=== PATIENT | female | born 1945 | race Caucasian/White ===

== ENCOUNTER 2017-03-10 15:01 | Outpatient (CLI) | payer BC ==
--- NOTE | 2017-03-10 16:25 | MMO ---
BILATERAL DIGITAL SCREENING MAMMOGRAMS WITH CAD: 03/10/17 COMPARISON: Comparison is made with exams of 03/04/16 and 02/16/15. There are scattered fibroglandular densities with benign appearing calcifications. No suspicious mas ses or calcifications are identified. IMPRESSION: BI-RADS 2: Benign Finding(s) Routine annual screening mammography (for women over age 40). POS: ALYSHA
== END 2017-03-10 15:02 | disposition home or self-care (01) ==
LOC: SCSMAMMO 15:01
PROVIDERS: ATTEND Obstetrics & Gynecology
DX: Z12.31 Encounter for screening mammogram for malignant neoplasm of breast (principal)
CPT/HCPCS: 77067; G0202

== ENCOUNTER 2017-07-30 08:37 | Outpatient (CLI) | payer BC | END 2017-07-30 08:38 | disposition home or self-care (01) | LOC: BICRAD 08:37 | PROVIDERS: ATTEND Anesthesiology Pain Medicine | DX: M25.551 Pain in right hip (principal); M25.552 Pain in left hip; M16.11 Unilateral primary osteoarthritis, right hip ==

== ENCOUNTER 2017-08-25 07:38 | Outpatient (CLI) | payer BC, MEDICARE ==
[2017-08-25 09:20] LABS: #Basophils 0.1 thou/uL (0.0-0.2); #Eosinphils 0.2 thou/uL (0.0-0.7); #Lymphocytes 2.1 thou/uL (1.20-3.40); #Monocytes 0.9 thou/uL (0.11-0.59); #Neutrophils 3.9 thou/uL (1.40-6.50); %Basophils 1.5 % (0.0-1.0); %Eosinophils 3.4 % (0.0-10.0); %Lymphocytes 29.2 % (21.0-51.0); %Monocytes 12.6 % (0.0-10.0); %Neutrophils 53.3 % (42.0-75.0); Hemoglobin 14.1 g/dL (12.0-16.0); Mean Corpuscular HGB CONC 33.8 g/dL (32.0-36.0); Mean Corpuscular Hemoglobin 32.1 pg (27.0-31.0); Mean Platelet Volume 6.6 fL (7.4-10.4); Platelet Count 380 thou/uL (130-400); Red Blood Cell (RBC) Count 4.38 mill/uL (4.20-5.40); White Blood Cell (WBC) Count 7.2 thou/uL (4.8-10.8)
[2017-08-25 09:25] LABS: Bilirubin Negative (Negative); Blood, Urine Negative (Negative); Clarity CLOUDY (Clear); Glucose, Urine (Dipstick) Negative (Negative); Leukocyte Moderate (Negative); Nitrite Negative (Negative); Protein, Urine (Dipstick) Negative (Neg-Trace); Specific Gravity, Urine 1.018 (1.002-1.036); Urobilinogen 0.2 mg/dL (0.2-1.0)
[2017-08-25 09:26] LABS: PTT 28.4 SEC (22.9-36.1)
[2017-08-25 09:29] LABS: Bacteria/HPF None Seen HPF (None Seen); Hyaline Casts/LPF 0-3 HYALINE CAST LPF (0-3 Hyaline); Pathc Cast-AUWi Flag 0.29 (0-2.49); RBC/HPF 0-3 HPF (0-3)
[2017-08-25 09:41] LABS: Anion Gap 14 mmol/L (10-20); BUN (Urea Nitrogen) 11 mg/dL (9.8-20.1); Calc. Creatinine Clearance 0 mL/min (70-130); Calcium 10.1 mg/dL (7.8-10.44); Carbon Dioxide 29 mmol/L (23-31); Chloride 101 mmol/L (98-107); Estimated GFR-MDRD 78; Glucose 98 mg/dL (80-115); Potassium 3.9 mmol/L (3.5-5.1); Sodium 140 mmol/L (136-145)
--- NOTE | 2017-08-26 08:03 | EKG ---
Test Reason : Blood Pressure : / mmHG Vent. Rate : 071 BPM Atrial Rate : 071 BPM P-R Int : 142 ms QRS Dur : 078 ms QT Int : 386 ms P-R-T Axes : 075 060 034 degrees QTc Int : 419 ms Normal sinus rhythm Normal ECG When compared with ECG of 07-FEB-2014 15:14, Criteria for Septal infarct are no longer Present Confirmed by LAURA GRIFFITHS ([id number]) on 08/26/2017 8:02:55 AM Referred By: SHERRY Confirmed By:LAURA GRIFFITHS
== END 2017-08-25 07:39 | disposition home or self-care (01) ==
LOC: LABBT 07:38
PROVIDERS: ATTEND Orthopaedic Surgery
DX: Z01.818 Encounter for other preprocedural examination (principal); M16.11 Unilateral primary osteoarthritis, right hip
CPT/HCPCS: 80048; 81001; 85025; 85610; 85730; 87081; 87086; 93005; 93010

== ENCOUNTER 2017-08-25 08:00 | Inpatient (IN) | payer BC, MEDICARE ==
--- NOTE | 2017-09-03 09:07 | HP ---
DATE OF ADMISSION: 09/07/2017 HISTORY OF PRESENT ILLNESS: The patient is a 71-year-old female with a 2-year history of progressive right hip pain without injury. She has pain with walking and prolonged sitting. Her symptoms have progressed to the point these interfere with day-to-day activities like walking, getting dressed, and sleeping. Mental relief with lifestyle adjustments and use of Meloxicam. PAST MEDICAL HISTORY: The patient is, otherwise, in good health. She has a history of hypertension, thyroid disease, and high cholesterol. CURRENT MEDICATIONS: Include simvastatin, hydrochlorothiazide, levothyroxine, gabapentin, and aspiri n 81 mg. ALLERGIES: She is allergic to AUGMENTIN, which causes an upset stomach. FAMILY HISTORY, SOCIAL HISTORY, AND REVIEW OF SYSTEMS: Otherwise unremarkable. PHYSICAL EXAMINATION: GENERAL: Reveals a healthy female. HEENT: Unremarkable. NECK: Supple. CHEST: Clear. HEART: Regular rate and rhythm. ABDOMEN: Soft, nontender. PELVIC/RECTAL/BREAST: Exams are deferred. EXTREMITIES: Pertinent findings of the right hip. There is tenderness over the anterior right hip. There is decreased range of motion of the right hip and groin pain with internal rotation of the rig ht hip. Her leg lengths are equal. There is a right antalgic gait. Neurovascular exam is intact. Pulses are 1+. Straight leg raising is negative. LABORATORY AND X-RAY FINDINGS: X-rays of the right hip reveals [id number] DJD with minimal j oint space remaining. IMPRESSION: Degenerative joint disease, right hip. PLAN: Right total hip replacement. The nature of the surgery, length of recovery, and potential com plications such as infection, loss of motion, incomplete relief, neurovascular injury, thromboembolic phenomenon, leg length discrepancy, possible transfusion, and need for revision have been discussed in detail.
[2017-09-07] MEDS ORDERED: CEFAZOLIN/Water 2 GM/20 ML SYRINGE ONE (06:24)
[2017-09-07] MEDS ORDERED: Midazolam HCl 2 mg/2 ml Vial ONE (06:33)
[2017-09-07] MEDS ORDERED: Fentanyl 100 MCG/2 ML VIAL ONE (06:34)
[2017-09-07] MEDS ORDERED: Ondansetron ODT 4 MG TAB ONE (06:47)
[2017-09-07] MEDS ORDERED: Promethazine HCl 25 MG/ML VIAL IM PRN ×2 (07:15→07:34)
[2017-09-07] MEDS ORDERED: Zolpidem Tartrate 5 MG TAB PO PRN (07:15)
[2017-09-07] MEDS ORDERED: Naloxone HCl 0.4 mg/ml Vial IVP PRN (07:15)
[2017-09-07] MEDS ORDERED: diphenhydrAMINE 50 MG/ML VIAL IVP PRN (07:15)
[2017-09-07] MEDS ORDERED: Promethazine HCl 25 MG SUPP PR PRN (07:15)
[2017-09-07] MEDS ORDERED: Ondansetron HCl/PF 4 MG/2 ML Vial IVP PRN ×3 (07:15→10:31)
[2017-09-07] MEDS ORDERED: Bupivacaine 0.25% 10 ML VIAL EPIDURAL PRN (07:15)
[2017-09-07] MEDS ORDERED: fentaNYL Citrate/PF 1,250 MCG, Bupivacaine 25 ML in Sodium Chloride 0.9% 250 ML 200 ML EPIDURAL SCH (07:15)
[2017-09-07] MEDS ORDERED: Bupivacaine HCl 0.5%/Epinephrine 1:200,000/PF 30 ml Vial ONE (07:15)
[2017-09-07] MEDS ORDERED: diphenhydrAMINE 50 MG/ML VIAL IM PRN (07:15)
[2017-09-07] MEDS ORDERED: Naloxone HCl 0.4 mg/ml Vial IV PRN (07:15)
[2017-09-07] MEDS ORDERED: Hydrocerin (Eucerin) Cream 120 gm Jar TOP PRN (07:15)
[2017-09-07] MEDS ORDERED: Promethazine HCl 25 MG/ML VIAL SLOW IVP PRN ×2 (07:34→10:31)
[2017-09-07] MEDS ORDERED: Tranexamic Acid 1,000 MG in Sodium Chloride 0.9% 100 ML IVPB SCH ×2 (09:15→10:31)
[2017-09-07] MEDS ORDERED: Meperidine HCl/PF 25 MG/ML VIAL ONE (09:32)
--- NOTE | 2017-09-07 09:38 | OP ---
DATE OF PROCEDURE: 09/07/2017 PREOPERATIVE DIAGNOSIS: Right hip end stage bicompartmental osteoarthritis. POSTOPERATIVE DIAGNOSIS: Right hip end stage bicompartmental osteoarthritis. OPERATIVE PROCEDURE: Press-Fit right total hip arthroplasty. SURGEON: José Miguel Schultz M.D. PROJECT STRUCTURAL ENGINEER: Luis Alfredo Mendoza PA-C. ANESTHESIA: General via endotracheal tube augmented with indwelling epidural. COMPONENTS USED: [employer] Trident PSL press-fit cluster acetabular shell, 52 mm with a T rident 10 degree polyethylene fixed bearing insert, Accolade press-fit size 3 hip stem and a 36 mm me tallic femoral V40 femoral head with a neutral offset. ESTIMATED BLOOD LOSS: Less than 100 mL. FINDINGS: End-stage severe degenerative bicompartmental disease, bone on bone arthrosis, periarticul ar osteophyte formation, large serous effusion, hypertrophic synovium, and hypertrophic capsule. DRAINS: None. SPECIMENS: None. COUNTS: Correct. INDICATIONS FOR SURGERY: Ranjit is a 71-year-old female who has had progressive right hip, groin and thigh pain for the last 5-7 years. She has failed conservative management and elected to proceed wit h total hip arthroplasty as definitive treatment of her pain. PROCEDURE IN DETAIL: After informed consent was obtained in the preoperative holding area, the patie nt was taken to the operative suite where general anesthesia was induced. The patient was then posit ioned in the lateral decubitus position. The hip was then prepped and draped in usual sterile fashio n. The patient received preoperative antibiotics. Prior to incision, time-out was called and all me mbers of the surgical team agreed upon site, surgeon, and patient. After this, a longitudinal incisi on was made directly over the trochanter, noted by palpation extending 2 fingerbreadths above and bel ow the trochanter. The deeper subcutaneous layer was undermined with Bovie electrocautery. The ilio tibial band was encountered and incised sharply and the plane below this was developed bluntly. A marjorie retractor was placed to hold this opened. The lateral aspect of the trochanter and the abduct or muscles were encountered and then reflected anteriorly off the trochanter using Bovie electrocaute ry. Once this was completed, the anterior capsule was then encountered and identified and copious ca psulotomy was carried out, exposing the femoral neck and head. Dislocation maneuver was then performe d and an in situ provisional neck cut was then made using the oscillating saw. Attention was then tu rned to acetabular preparation and sequential reaming was carried out up to the appropriate diameter and a trial was then malleted into place with good firm resistance and no pullout. The permanent corrie tabular shell was then malleted squarely into place, as was the appropriate liner. Once completed, t he wound was copiously irrigated and attention was then turned to femoral preparation. Flexion and ex ternal rotation was performed of the exposed thigh and femoral elevators were then placed at the prox imal aspect of the wound. Canal finder was used to establish the length of the canal and sequential reaming was carried out, followed by broaching. Once the appropriate stability was established with the trial broaches with both flexion, extension and rotational stability, we did trial with neutral a nd 2 mm offset incremental necks. Once the appropriate size was decided upon, with good stability no natasha with flexion, extension, internal and external rotation and shuck being negative, we removed the femoral trial broach and malletted into place the permanent prosthesis with good firm fit, which was also stable to rotation. Again, the hip felt very stable to flexion, extension, internal and externa l rotation. Leg lengths appeared near anatomic clinically and we were quite happy with prosthesis pl acement. Copious irrigation was then carried out through the entirety of the wound. Primary closure of the abductors was accomplished with interrupted #2 Vicryl [id number]-my-[id number] stitches and the IT ban d was then closed with interrupted #2 Vicryl, oversewn with a #2 running barbed Quill stitch. Subcut aneous fascia was closed with running barbed Quill stitch and a subcuticular Monocryl barbed Quill st itch was used for skin closure and augmented with skin cement. A sterile dressing was applied. The p rocedure was terminated without any complication. All counts were correct. The patient was awakened in the operative suite and taken to the recovery room in stable condition.
[2017-09-07] MEDS ORDERED: Ketorolac Tromethamine 30 MG/ML VIAL ONE (09:43)
[2017-09-07] MEDS ORDERED: diphenhydrAMINE 50 MG/ML VIAL IVP SCH (10:00)
[2017-09-07] MEDS ORDERED: traMADol HCl 50 MG TAB PO PRN (10:31)
[2017-09-07] MEDS ORDERED: diphenhydrAMINE 25 MG CAP PO PRN (10:31)
[2017-09-07] MEDS ORDERED: Fentanyl 100 MCG/2 ML VIAL SLOW IVP PRN ×2 (10:31)
[2017-09-07] MEDS ORDERED: HYDROcodone/Acetaminophen 10/325 mg Tablet PO PRN ×2 (10:31)
--- NOTE | 2017-09-07 10:33 | RAD ---
RIGHT HIP 2 VIEWS: HISTORY: A 71-year-old female with a history of postop total hip replacement. FINDINGS: No evidence of dislocation or periprosthetic fracture or other significant abnormality. IMPRESSION: Recent total right hip replacement. No dislocation or periprosthetic fracture. POS: OFF
[2017-09-07 11:13] VITALS: BMI 30.1
[2017-09-07] MEDS ORDERED: Hydrochlorothiazide 25 MG TAB PO SCH (11:15)
[2017-09-07] MEDS ORDERED: Atorvastatin Calcium 20 MG TAB PO SCH (11:15)
[2017-09-07] MEDS ORDERED: Gabapentin 300 MG CAP PO SCH (11:15)
[2017-09-07] MEDS ORDERED: Levothyroxine Sodium 125 MCG TAB PO SCH (11:15)
[2017-09-07] MEDS ORDERED: Fish Oil 1,000 MG CAP PO SCH (11:15)
[2017-09-07] MEDS: Sodium Chloride 0.9% 1,000 ML IV SCH ×3 (11:56→21:28)
[2017-09-07] MEDS ORDERED: Ketorolac Tromethamine 30 MG/ML VIAL IVP SCH ×2 (12:00→14:00)
[2017-09-07] MEDS: HYDROcodone/Acetaminophen 5/325 mg Tablet PO PRN ×3 (12:10→21:35)
--- NOTE | 2017-09-07 12:56 | CON ---
DATE OF CONSULTATION: 09/07/2017 HISTORY OF PRESENT ILLNESS: The patient is a 71-year-old female, status post right hip replacement s urgery. She has done well since her surgery today. I have been asked to follow her for postop medic al care. She reports no complaints except for some pain. Her medical problems include hypothyroidis m, hypercholesterolemia, previous history of herpes zoster. Otherwise, no other medical complaints. ALLERGIES: She is allergic to AUGMENTIN. PHYSICAL EXAMINATION: VITAL SIGNS: Temperature 97.4, pulse 65, respirations 18, O2 sat 99% on room air, BP 125/77. GENERAL: She is alert, active, in no acute distress. HEENT: Normocephalic and atraumatic. Extraocular motions are intact. Sclerae and conjunctivae christina r. Throat clear. NECK: Supple, full range of motion, no masses. LUNGS: Clear. HEART: Reveals no murmurs. Had regular rate and rhythm without gallops or rubs. ABDOMEN: Soft, nontender. EXTREMITIES: No clubbing, edema, or cyanosis. IMPRESSION: Status post right hip replacement surgery. PLAN: We will continue to follow medically. Thank you for consult.
[2017-09-07] MEDS: traMADol HCl 50 MG TAB PO PRN (12:59)
[2017-09-07] MEDS ORDERED: PHENYLEPHRINE-NS 100 MCG/ML 10 ML SYRINGE ONE (13:05)
[2017-09-07] MEDS ORDERED: Lidocaine 1% PF 5 ML VIAL ONE (13:05)
[2017-09-07] MEDS ORDERED: PROPOFOL 200 MG/20 ML VIAL ONE (13:05)
[2017-09-07] MEDS ORDERED: Glycopyrrolate 0.2 MG/ML 5 ML SYRINGE ONE (13:05)
[2017-09-07] MEDS: CEFAZOLIN/Water 2 GM/20 ML SYRINGE SLOW IVP SCH ×2 (14:35→21:40)
[2017-09-07] MEDS: Ketorolac Tromethamine 30 MG/ML VIAL IVP SCH ×2 (16:52→21:37)
[2017-09-07] MEDS ORDERED: Vancomycin HCl 1 GM in Premix Bag 1 BAG IVPB SCH (18:00)
[2017-09-07] MEDS: Zolpidem Tartrate 5 MG TAB PO PRN (21:43)
[2017-09-08] MEDS: HYDROcodone/Acetaminophen 5/325 mg Tablet PO PRN ×2 (01:49→14:59)
[2017-09-08] MEDS: Ketorolac Tromethamine 30 MG/ML VIAL IVP SCH ×4 (05:00→21:19)
[2017-09-08] MEDS: Levothyroxine Sodium 125 MCG TAB PO SCH (05:29)
[2017-09-08] MEDS: Sodium Chloride 0.9% 1,000 ML IV SCH ×2 (05:37→17:19)
[2017-09-08 05:40] LABS: Hemoglobin 10.8 g/dL (12.0-16.0); Mean Corpuscular HGB CONC 33.3 g/dL (32.0-36.0); Mean Corpuscular Hemoglobin 31.3 pg (27.0-31.0); Mean Corpuscular Volume 93.9 fl (81.0-99.0); Mean Platelet Volume 6.5 fL (7.4-10.4); Platelet Count 306 thou/uL (130-400); Red Blood Cell (RBC) Count 3.45 mill/uL (4.20-5.40); White Blood Cell (WBC) Count 10.5 thou/uL (4.8-10.8)
--- NOTE | 2017-09-08 07:11 | PRG ---
DATE OF SERVICE: 09/08/2017 SUBJECTIVE: Ranjit is a 71-year-old white female who is postop day #1 for right total hip arthroplast y. She is doing relatively well. She had some pain yesterday evening, but this has been taken care of by oral medicines this morning. Her epidural seems to be functioning pretty well. PHYSICAL EXAMINATION: VITAL SIGNS: Stable, afebrile, normotensive. GENERAL: Alert and oriented to person, place, time, and situation. Grossly nonfocal. EXTREMITIES: She is neurovascularly intact in the involved extremities. No strikethrough. She is lying comfortably in bed and conversing and appropriate with examiner. ASSESSMENT: A 71-year-old white female postop day #1 right total hip arthroplasty, doing well. PLAN: Continue current management, home discharge probably tomorrow.
--- NOTE | 2017-09-08 08:27 | PRG ---
DATE OF SERVICE: 09/08/2017 SUBJECTIVE: Ms. Rob is doing well postop. She has now experienced some nausea and some increas ed pain. OBJECTIVE: VITAL SIGNS: Temperature 98.9, BP 127/64, O2 sats 98%. LUNGS: Clear. HEART: Reveals a regular rate and rhythm without murmurs. ABDOMEN: Soft. EXTREMITIES: No redness or swelling. LABORATORY DATA: Hemoglobin 10.8 and hematocrit 32.4. IMPRESSION: 1. Status post right hip replacement. 2. Postoperative nausea. PLAN: Advised patient continue to use antinausea compounds and use of pain medicines as indicated. The patient has expressed desire for rehab placement. I am in agreement with this.
[2017-09-08] MEDS: Multivitamin W/ Minerals 1 TAB PO SCH (08:57)
[2017-09-08] MEDS: Ferrous Gluconate 324 MG TAB PO SCH ×2 (08:57→18:04)
[2017-09-08] MEDS: Senokot S 8.6-50 MG TAB PO SCH ×2 (08:58→20:56)
[2017-09-08] MEDS: Hydrochlorothiazide 25 MG TAB PO SCH (08:58)
[2017-09-08] MEDS: Atorvastatin Calcium 20 MG TAB PO SCH (08:58)
[2017-09-08] MEDS: Fish Oil 1,000 MG CAP PO SCH (08:59)
[2017-09-08] MEDS ORDERED: Gabapentin 300 MG CAP PO SCH (09:00)
[2017-09-08] MEDS: Scopolamine 1.5 mg/72 hour Patch TOP SCH (10:59)
[2017-09-08] MEDS: Gabapentin 300 MG CAP PO SCH (20:56)
[2017-09-08] MEDS: Zolpidem Tartrate 5 MG TAB PO PRN (21:20)
[2017-09-09] MEDS: Sodium Chloride 0.9% 1,000 ML IV SCH ×3 (03:12→22:30)
[2017-09-09] MEDS: Ketorolac Tromethamine 30 MG/ML VIAL IVP SCH ×2 (05:28→10:45)
[2017-09-09] MEDS: Levothyroxine Sodium 125 MCG TAB PO SCH (05:28)
[2017-09-09] MEDS: Acetaminophen 325 MG TAB PO PRN (05:28)
[2017-09-09 05:29] LABS: Hemoglobin 10.5 g/dL (12.0-16.0); Mean Corpuscular HGB CONC 32.9 g/dL (32.0-36.0); Mean Corpuscular Hemoglobin 30.2 pg (27.0-31.0); Mean Corpuscular Volume 91.9 fl (81.0-99.0); Mean Platelet Volume 6.8 fL (7.4-10.4); Platelet Count 166 thou/uL (130-400); Red Blood Cell (RBC) Count 3.47 mill/uL (4.20-5.40); White Blood Cell (WBC) Count 13.1 thou/uL (4.8-10.8)
[2017-09-09] MEDS: Ferrous Gluconate 324 MG TAB PO SCH ×2 (07:56→16:30)
[2017-09-09] MEDS: Fish Oil 1,000 MG CAP PO SCH (07:58)
[2017-09-09] MEDS: Senokot S 8.6-50 MG TAB PO SCH ×2 (07:58→20:11)
[2017-09-09] MEDS: Multivitamin W/ Minerals 1 TAB PO SCH (07:58)
[2017-09-09] MEDS: Atorvastatin Calcium 20 MG TAB PO SCH (07:58)
[2017-09-09] MEDS: Hydrochlorothiazide 25 MG TAB PO SCH (07:58)
--- NOTE | 2017-09-09 10:07 | PRG ---
DATE OF SERVICE: 09/09/2017 SUBJECTIVE: Ms. Rob is doing better. She is a little bit more alert this morning. OBJECTIVE: VITAL SIGNS: Temperature 99.1, pulse 108, blood pressure 140/73. LUNGS: Lungs are clear. HEART: Reveals no murmur. LABORATORY DATA: Hemoglobin is 10.5, hematocrit 31.9. IMPRESSION: Status post right total hip replacement, doing well postoperatively. PLAN: Medically stable, probably could be discharged medically at any point.
--- NOTE | 2017-09-09 13:05 | PRG ---
DATE OF SERVICE: 09/09/2017 SUBJECTIVE: Ranjit is a 71-year-old female who is postop day #2 from a right total hip arthroplasty. She is doing relatively well. She is still little slow at achieving independence in activities of d aily living. Otherwise, pain is relatively well controlled. Her epidural is still in as is her Fole y catheter. OBJECTIVE: VITAL SIGNS: Temperature 98.6, pulse 87, respiratory rate 16, O2 saturation on 2 liters nasal cannul a is 98%. Her systolic blood pressure is between 115 to 140. GENERAL: She is alert and oriented to person, place, time, and situation, and appropriate with exami ner. Grossly nonfocal. EXTREMITIES: She is neurovascularly intact in the involved extremities. There is no strikethrough on her dressing. LABORATORY DATA: Hemoglobin 10.5, hematocrit 31.9 on postop day #2. IMPRESSION: 1. A 71-year-old white female postop day #2 right total hip arthroplasty, doing relatively well. 2. Postoperative hemorrhagic anemia. PLAN: Continue current management. Give consideration to a skilled consult for tomorrow versus home discharge as she makes significant improvement.
[2017-09-09] MEDS: HYDROcodone/Acetaminophen 5/325 mg Tablet PO PRN ×2 (16:29→20:11)
[2017-09-09] MEDS: traMADol HCl 50 MG TAB PO PRN (18:57)
[2017-09-09] MEDS: diphenhydrAMINE 25 MG CAP PO PRN (20:11)
[2017-09-09] MEDS: Gabapentin 300 MG CAP PO SCH (20:11)
[2017-09-10] MEDS: Levothyroxine Sodium 125 MCG TAB PO SCH (06:39)
[2017-09-10] MEDS: HYDROcodone/Acetaminophen 5/325 mg Tablet PO PRN ×3 (06:40→20:08)
--- NOTE | 2017-09-10 07:44 | PRG ---
DATE OF SERVICE: 09/10/2017 SUBJECTIVE: Ms. Rob is doing well postoperatively. She has no medical complaints. She feels w ell otherwise. PHYSICAL EXAMINATION: VITAL SIGNS: Temperature 98.6, blood pressure 145/78. LUNGS: Clear. HEART: Reveals no murmur. IMPRESSION: Status post right total hip replacement. PLAN: Patient apparently will be discharged to [facility] for [facility]. I am in agreemen t with this.
[2017-09-10] MEDS: Ferrous Gluconate 324 MG TAB PO SCH ×2 (08:35→17:02)
[2017-09-10] MEDS: Multivitamin W/ Minerals 1 TAB PO SCH (08:35)
[2017-09-10] MEDS: Fish Oil 1,000 MG CAP PO SCH (08:35)
[2017-09-10] MEDS: Hydrochlorothiazide 25 MG TAB PO SCH (08:35)
[2017-09-10] MEDS: Senokot S 8.6-50 MG TAB PO SCH ×2 (08:36→20:09)
[2017-09-10] MEDS: Sodium Chloride 0.9% 1,000 ML IV SCH ×2 (08:36→18:18)
[2017-09-10] MEDS: Atorvastatin Calcium 20 MG TAB PO SCH (08:36)
[2017-09-10] MEDS: Gabapentin 300 MG CAP PO SCH (20:07)
[2017-09-11] MEDS: Sodium Chloride 0.9% 1,000 ML IV SCH ×2 (00:29→11:50)
[2017-09-11] MEDS: HYDROcodone/Acetaminophen 5/325 mg Tablet PO PRN ×4 (03:08→20:37)
[2017-09-11] MEDS: Levothyroxine Sodium 125 MCG TAB PO SCH (05:10)
[2017-09-11] MEDS: Ferrous Gluconate 324 MG TAB PO SCH ×2 (08:52→16:17)
[2017-09-11] MEDS: Atorvastatin Calcium 20 MG TAB PO SCH (08:55)
[2017-09-11] MEDS: Fish Oil 1,000 MG CAP PO SCH (08:55)
[2017-09-11] MEDS: Multivitamin W/ Minerals 1 TAB PO SCH (08:56)
[2017-09-11] MEDS: Senokot S 8.6-50 MG TAB PO SCH ×2 (08:56→23:46)
[2017-09-11] MEDS: Hydrochlorothiazide 25 MG TAB PO SCH (08:56)
[2017-09-11] MEDS: Scopolamine 1.5 mg/72 hour Patch TOP SCH (10:43)
[2017-09-11] MEDS: Gabapentin 300 MG CAP PO SCH (20:38)
[2017-09-11] MEDS: diphenhydrAMINE 25 MG CAP PO PRN (20:40)
[2017-09-12] MEDS: Sodium Chloride 0.9% 1,000 ML IV SCH ×3 (02:25→23:01)
[2017-09-12] MEDS: Levothyroxine Sodium 125 MCG TAB PO SCH (05:49)
[2017-09-12] MEDS: HYDROcodone/Acetaminophen 5/325 mg Tablet PO PRN ×3 (07:20→21:04)
[2017-09-12] MEDS: Senokot S 8.6-50 MG TAB PO SCH ×2 (09:23→21:05)
[2017-09-12] MEDS: Multivitamin W/ Minerals 1 TAB PO SCH (09:24)
[2017-09-12] MEDS: Fish Oil 1,000 MG CAP PO SCH (09:24)
[2017-09-12] MEDS: Hydrochlorothiazide 25 MG TAB PO SCH (09:24)
[2017-09-12] MEDS: Ferrous Gluconate 324 MG TAB PO SCH ×2 (09:24→16:46)
[2017-09-12] MEDS: Atorvastatin Calcium 20 MG TAB PO SCH (09:24)
[2017-09-12] MEDS: diphenhydrAMINE 25 MG CAP PO PRN (21:05)
[2017-09-12] MEDS: Gabapentin 300 MG CAP PO SCH (21:05)
[2017-09-13] MEDS: Sodium Chloride 0.9% 1,000 ML IV SCH ×3 (01:24→22:29)
[2017-09-13] MEDS: Levothyroxine Sodium 125 MCG TAB PO SCH (05:50)
[2017-09-13] MEDS: Hydrochlorothiazide 25 MG TAB PO SCH (08:30)
[2017-09-13] MEDS: Atorvastatin Calcium 20 MG TAB PO SCH (08:30)
[2017-09-13] MEDS: Senokot S 8.6-50 MG TAB PO SCH ×3 (08:30→21:01)
[2017-09-13] MEDS: Fish Oil 1,000 MG CAP PO SCH (08:30)
[2017-09-13] MEDS: Ferrous Gluconate 324 MG TAB PO SCH ×2 (08:30→18:53)
[2017-09-13] MEDS: Multivitamin W/ Minerals 1 TAB PO SCH (08:30)
[2017-09-13] MEDS: HYDROcodone/Acetaminophen 5/325 mg Tablet PO PRN (20:59)
[2017-09-13] MEDS: Gabapentin 300 MG CAP PO SCH (21:00)
[2017-09-14] MEDS: Levothyroxine Sodium 125 MCG TAB PO SCH (07:12)
[2017-09-14] MEDS: Atorvastatin Calcium 20 MG TAB PO SCH (08:32)
[2017-09-14] MEDS: Ferrous Gluconate 324 MG TAB PO SCH ×2 (08:32→17:50)
[2017-09-14] MEDS: Hydrochlorothiazide 25 MG TAB PO SCH (08:32)
[2017-09-14] MEDS: Fish Oil 1,000 MG CAP PO SCH (08:32)
[2017-09-14] MEDS: Senokot S 8.6-50 MG TAB PO SCH ×2 (08:32→20:56)
[2017-09-14] MEDS: Multivitamin W/ Minerals 1 TAB PO SCH (08:32)
[2017-09-14] MEDS: Scopolamine 1.5 mg/72 hour Patch TOP SCH (10:57)
[2017-09-14] MEDS: HYDROcodone/Acetaminophen 5/325 mg Tablet PO PRN ×2 (14:08→20:55)
[2017-09-14] MEDS: Sodium Chloride 0.9% 1,000 ML IV SCH ×2 (14:40→23:26)
[2017-09-14] MEDS: Gabapentin 300 MG CAP PO SCH (20:55)
[2017-09-15] MEDS: Levothyroxine Sodium 125 MCG TAB PO SCH (06:10)
[2017-09-15] MEDS: HYDROcodone/Acetaminophen 5/325 mg Tablet PO PRN ×2 (06:16→12:53)
[2017-09-15] MEDS: Hydrochlorothiazide 25 MG TAB PO SCH (09:57)
[2017-09-15] MEDS: Multivitamin W/ Minerals 1 TAB PO SCH (09:57)
[2017-09-15] MEDS: Fish Oil 1,000 MG CAP PO SCH (09:57)
[2017-09-15] MEDS: Ferrous Gluconate 324 MG TAB PO SCH ×2 (09:57→17:57)
[2017-09-15] MEDS: Atorvastatin Calcium 20 MG TAB PO SCH (09:57)
[2017-09-15] MEDS: Senokot S 8.6-50 MG TAB PO SCH ×2 (09:58→20:44)
[2017-09-15] MEDS: Sodium Chloride 0.9% 1,000 ML IV SCH ×3 (09:59→21:51)
[2017-09-15] MEDS: traMADol HCl 50 MG TAB PO PRN (20:43)
[2017-09-15] MEDS: Gabapentin 300 MG CAP PO SCH (20:43)
[2017-09-16] MEDS: Levothyroxine Sodium 125 MCG TAB PO SCH (05:07)
[2017-09-16] MEDS: Ferrous Gluconate 324 MG TAB PO SCH ×2 (08:07→16:40)
[2017-09-16] MEDS: Fish Oil 1,000 MG CAP PO SCH (08:08)
[2017-09-16] MEDS: Atorvastatin Calcium 20 MG TAB PO SCH (08:08)
[2017-09-16] MEDS: Hydrochlorothiazide 25 MG TAB PO SCH (08:08)
[2017-09-16] MEDS: Multivitamin W/ Minerals 1 TAB PO SCH (08:09)
[2017-09-16] MEDS: Senokot S 8.6-50 MG TAB PO SCH ×2 (08:09→20:40)
[2017-09-16] MEDS: Sodium Chloride 0.9% 1,000 ML IV SCH ×2 (11:31→22:29)
[2017-09-16] MEDS: HYDROcodone/Acetaminophen 5/325 mg Tablet PO PRN (13:15)
[2017-09-16] MEDS: traMADol HCl 50 MG TAB PO PRN (20:39)
[2017-09-16] MEDS: Gabapentin 300 MG CAP PO SCH (20:40)
[2017-09-17] MEDS: Levothyroxine Sodium 125 MCG TAB PO SCH (06:05)
[2017-09-17] MEDS: Fish Oil 1,000 MG CAP PO SCH (08:13)
[2017-09-17] MEDS: Atorvastatin Calcium 20 MG TAB PO SCH (08:13)
[2017-09-17] MEDS: Ferrous Gluconate 324 MG TAB PO SCH (08:13)
[2017-09-17] MEDS: Multivitamin W/ Minerals 1 TAB PO SCH (08:13)
[2017-09-17] MEDS: Senokot S 8.6-50 MG TAB PO SCH (08:13)
[2017-09-17] MEDS: Hydrochlorothiazide 25 MG TAB PO SCH (08:14)
[2017-09-17] MEDS: Scopolamine 1.5 mg/72 hour Patch TOP SCH ×2 (09:52→11:43)
[2017-09-17] MEDS: Sodium Chloride 0.9% 1,000 ML IV SCH (09:52)
[2017-09-17 12:20] VITALS: BP 133/71; TEMP 98.2
[2017-09-17] MEDS: traMADol HCl 50 MG TAB PO PRN (13:19)
[2017-09-17] MEDS: Acetaminophen 325 MG TAB PO PRN (14:52)
--- NOTE | 2017-09-18 11:42 | DIS ---
The patient is a 71-year-old female with a 2-year history of progressive degenerative arthritis of th e right hip, unresponsive to conservative treatment. She was taken to the operating room on the day of admission where she underwent right total hip replacement under general anesthesia with supplement al epidural. From a medical standpoint her postoperative course was essentially benign. She is on a program of ambulation with a walker and active range of motion exercises. Her H&H stabilized at 10 and 31. The patient lives by herself and does not have immediate family care and consultations were made for inpatient rehab as well as discharge planning to possible longterm. Because of diffi culties with obtaining insurance approval, her hospital stay was extended waiting on insurance approv al. It was felt that the patient could not go home because it was not safe for her to be by herself and she did not have family to take care of her at night. In the meantime, she was continued on phys ical therapy. Presently her wound is clean. She is comfortable. Arrangements have been made for [facility] facility that has been approved by her insurance and she will be discharged there. We will continue physical therapy and current medications. She is given a prescription for [employer] for p ain, 60 tablets. She will continue aspirin prophylaxis for DVT as well as support hose and sequentia l compression devices. She will be rechecked in my office in 2-3 weeks or sooner if there are any pr oblems prior to that time. DISCHARGE DIAGNOSES: 1. Degenerative arthritis, right hip. 2. Postop anemia secondary to blood loss. 3. History of hypertension. 4. History of thyroid replacement.
== END 2017-09-17 15:37 | DRG 470 ==
LOC: SJJU 09-07 05:37
PROVIDERS: ADMIT Orthopaedic Surgery; ATTEND Orthopaedic Surgery
PROC: 0SR902A Replacement of Right Hip Joint with Metal on Polyethylene Synthetic Substitute, Uncemented, Open Approach (ICD-10-PCS; principal; 2017-09-07)
DX: M16.11 Unilateral primary osteoarthritis, right hip (principal); D62 Acute posthemorrhagic anemia; I10 Essential (primary) hypertension; E78.00 Pure hypercholesterolemia, unspecified; E03.9 Hypothyroidism, unspecified; R11.0 Nausea; Z88.1 Allergy status to other antibiotic agents; Z79.82 Long term (current) use of aspirin; Z79.899 Other long term (current) drug therapy
CPT/HCPCS: 36415; 85027; C1776; G8978-GP-CL; G8979-GP-CJ; G8987-GO-CL; G8988-GO-CI; J0670; J1885; J2001; J2175; J2250; J2405; J2550; J2704; J3010; J3370; J3490; J7050; Q0162

== ENCOUNTER 2017-09-01 07:23 | Outpatient (CLI) | payer BC, MEDICARE | END 2017-09-01 07:24 | disposition home or self-care (01) | LOC: LABBT 07:23 | PROVIDERS: ATTEND Orthopaedic Surgery | DX: Z01.812 Encounter for preprocedural laboratory examination (principal); M16.11 Unilateral primary osteoarthritis, right hip | CPT/HCPCS: 86850; 86900; 86901 ==

== ENCOUNTER 2018-03-22 10:56 | Outpatient (CLI) | payer BC ==
--- NOTE | 2018-03-22 15:23 | MMO ---
BILATERAL DIGITAL SCREENING MAMMOGRAMS: Date: 03/22/18 HISTORY: 72-year-old female presents for digital screening mammogram. COMPARISON: 03/10/17, 03/04/16, 02/16/15, 01/30/14, and 01/26/13. FINDINGS: This patient's mammogram was interpreted with the assistance of computer-aided detection. Scattered areas of fibroglandular density are noted throughout both breasts. There are numerous stabl e, typically benign calcifications. There is a new, at least partially circumscribed mass, in the ant erior somewhat superficial upper outer subareolar region of the left breast measuring 0.9 x 1.0 x 1.1 cm in size. This needs additional imaging for further assessment. IMPRESSION: BIRADS 0: Incomplete: Need Additional Imaging Evaluation and/or Prior Mammograms for Comparison Follow-up left unilateral diagnostic mammogram to include spot CC and MLO images with 3D and 90 degre e ML full field with 3D imaging. Additionally, the patient should be scheduled for left breast ultras ound, which will probably be needed. The facility will notify patient of need for additional imaging services. POS: ALYSHA
== END 2018-03-22 10:57 | disposition home or self-care (01) ==
LOC: SCSMAMMO 10:56
PROVIDERS: ATTEND Obstetrics & Gynecology
DX: Z12.31 Encounter for screening mammogram for malignant neoplasm of breast (principal)
CPT/HCPCS: 77067

== ENCOUNTER 2018-04-07 10:16 | Outpatient (CLI) | payer BC ==
--- NOTE | 2018-04-07 13:17 | ULT ---
LEFT BREAST ULTRASOUND: HISTORY: Abnormal mammogram. CORRELATION: Mammogram from 03/22/2018. FINDINGS: Sonographic evaluation of the retroareolar aspect of the left breast demonstrates a hypoechoic, nonsh adowing, solid appearing nodule at the 12 o'clock position, corresponding to the mammographic finding , measuring 8 x 2 x 7 mm. IMPRESSION: BI-RADS Category 4-Suspicious abnormality. Ultrasound guided biopsy is recommended. Discussed in person with the patient at 10:55 a.m. POS: ALYSHA
== END 2018-04-07 10:17 | disposition home or self-care (01) ==
LOC: BICMAMMO 10:16
PROVIDERS: ATTEND Obstetrics & Gynecology
DX: N63.22 Unspecified lump in the left breast, upper inner quadrant (principal)
CPT/HCPCS: G0279

== ENCOUNTER → 2018-04-23 | Day surgery (SDC) | payer BC ==
--- NOTE | 2018-04-23 13:42 | ULT ---
LIMITED LEFT BREAST ULTRASOUND: Date: 04/23/18 PROVIDED CLINICAL HISTORY: Left breast mass. FINDINGS: Limited sonographic interrogation of the left breast was performed in the region of prior sonographic and mammographic concern. The previously described abnormality has prominent decreased in size, now measuring 4-5 mm maximum. Biopsy was deferred on this basis and consultation with the patient. IMPRESSION: Interval decrease in size of the previously described left breast mass, presumably reflecting a resol ving cyst. A 6 month follow-up left breast ultrasound is recommended. POS: OFF
== END ==
LOC: BICULT 12:34
PROVIDERS: ATTEND Obstetrics & Gynecology
DX: N63.20 Unspecified lump in the left breast, unspecified quadrant (principal); Z53.8 Procedure and treatment not carried out for other reasons

== ENCOUNTER 2018-11-08 07:25 | Outpatient (CLI) | payer BC ==
--- NOTE | 2018-11-08 10:36 | ULT ---
LEFT BREAST ULTRASOUND: Date: 11/08/18 HISTORY: 73-year-old female with breast mass and 6 month follow-up. COMPARISON: 04/23/18. FINDINGS: Limited sonographic evaluation of the left breast was performed in the region of previous sonographic concern at the 12 o'clock position of the retroareolar region of the left breast. The previously noted abnormality is not visualized on the current exam. IMPRESSION: BI-RADS Category 2 - Benign findings. Return to routine mammographic screening, which is due in 2018. POS: OFF
== END 2018-11-08 07:26 | disposition home or self-care (01) ==
LOC: BICULT 07:25
PROVIDERS: ATTEND Obstetrics & Gynecology
DX: R92.8 Other abnormal and inconclusive findings on diagnostic imaging of breast (principal)

== ENCOUNTER 2018-12-10 14:07 | Outpatient (CLI) | payer BC ==
--- NOTE | 2018-12-10 16:15 | RAD ---
RIGHT CLAVICLE 2 VIEWS: Date: 12/10/18 HISTORY: Sprain of right sternoclavicular joint. FINDINGS: Marked AC joint arthrosis changes are noted. There appears to be some sclerosis at the medial clavicl e and sternoclavicular joint region. This area is mostly obscured by the overlying ribs. Given palpab le concern in this region I would strongly recommend a follow-up CT scan with attention to right and left sternoclavicular joint regions. No overt acute fracture. IMPRESSION: 1. Some increased sclerosis and increased density in the medial clavicle, given that this area is th e area of clinical concern, follow-up chest CT scan of both sternoclavicular joints is recommended fo r further assessment. 2. AC joint arthrosis changes. 3. No overt acute clavicle fracture. POS: TPC
== END 2018-12-10 14:08 | disposition home or self-care (01) ==
LOC: SCSRAD 14:07
PROVIDERS: ATTEND Family Medicine
DX: S43.61XA Sprain of right sternoclavicular joint, initial encounter (principal); M19.011 Primary osteoarthritis, right shoulder; M89.9 Disorder of bone, unspecified

== ENCOUNTER 2018-12-28 14:45 | Outpatient (CLI) | payer BC ==
--- NOTE | 2018-12-28 16:09 | CT ---
EXAM: CT Chest WO Con PROVIDED CLINICAL HISTORY: Chest pain COMPARISON: None FINDINGS: The heart, pericardium and great vessels are suboptimally evaluated in the absence of IV contrast mat erial but demonstrate an unremarkable unenhanced CT appearance with the exception of vascular calcification including coronary calcium. The lungs are free of significant opacity. The airway appears patent and of normal caliber. No pleural fluid or pleural thickening apparent. No evidence for pneumothorax. There is asymmetric right sternoclavicular degenerative arthrosis. In addition, there is a nondisplac ed fracture involving the first costochondral cartilage. The osseous structures demonstrate an otherwise unremarkable CT appearance. IMPRESSION: 1. Nondisplaced fracture involving the first costochondral cartilage. 2. Right sternoclavicular degenerative arthrosis. 3. Atherosclerosis including coronary calcium.
== END 2018-12-28 14:46 | disposition home or self-care (01) ==
LOC: SCSCT 14:45
PROVIDERS: ATTEND Family Medicine
DX: S43.61XA Sprain of right sternoclavicular joint, initial encounter (principal); S23.41XA Sprain of ribs, initial encounter; M19.011 Primary osteoarthritis, right shoulder; I25.10 Atherosclerotic heart disease of native coronary artery without angina pectoris
CPT/HCPCS: 71250

== ENCOUNTER 2022-05-20 08:35 | Outpatient (CLI) | payer BC ==
[2022-05-20] MEDS ORDERED: Iopamidol 370 76% 100 ML VIAL ONE (08:39)
== END 2022-05-20 08:36 | disposition home or self-care (01) ==
LOC: BICCT 08:35
PROVIDERS: ATTEND Internal Medicine Cardiovascular Disease
DX: M79.606 Pain in leg, unspecified (principal); I74.5 Embolism and thrombosis of iliac artery
CPT/HCPCS: 75635; 82565; Q9967

== ENCOUNTER 2022-06-17 05:49 | Day surgery (SDC) | payer BC ==
[2022-06-16 10:55] VITALS: BMI 31.1
[2022-06-17] MEDS ORDERED: Lidocaine 1% (PF) 30 ML VIAL ONE (06:18)
[2022-06-17] MEDS ORDERED: Adenosine 6 MG/2 ML VIAL ONE (06:18)
[2022-06-17] MEDS ORDERED: Nitroglycerin 100MG/250ML BOT 0 ML ONE (06:18)
[2022-06-17] MEDS ORDERED: Heparin 10,000 UNITS/ 10 ML VIAL ONE (06:18)
[2022-06-17 07:08] LABS: Cardiac Risk 2.7 (Less than 4.5)
[2022-06-17] MEDS ORDERED: Midazolam HCl 2 mg/2 ml Vial ONE (07:22)
[2022-06-17] MEDS ORDERED: FENTANYL 50 MCG/ML 1 ML VIAL ONE (07:22)
[2022-06-17 07:58] LABS: Actual Bicarbonate (HCO3a) 27.9 mEq/L (22-28); Calcium, Ionized (arterial) 1.19 mmol/L (1.12-1.30); Carboxyhemoglobin (COHb) 0.2 gm% (0.0-3.0); Hemoglobin (Hb) 12.6 g/dL (12.0-16.0); Potassium - ABG Lab 3.69 mmol/L (3.70-5.30); pH, Arterial 7.37 (7.35-7.45)
[2022-06-17 07:59] LABS: O2 Tension (PaO2), arterial 46.6 mmHg (> 70.0); Puncture Site RA
[2022-06-17 08:04] LABS: Actual Bicarbonate (HCO3a) 25.5 mEq/L (22-28); Base Excess (BEa) -0.3 mEq/L (-2.0 to +3.0); CO2 Tension 46.2 mmHg (35.0-45.0); Calcium, Ionized (arterial) 1.19 mmol/L (1.12-1.30); Carboxyhemoglobin (COHb) 0.2 gm% (0.0-3.0); Hemoglobin (Hb) 12.6 g/dL (12.0-16.0); O2 Tension (PaO2), arterial 47.6 mmHg (> 70.0); Potassium - ABG Lab 3.73 mmol/L (3.70-5.30); pH, Arterial 7.36 (7.35-7.45)
[2022-06-17] MEDS ORDERED: TICAGRELOR 90 MG TABLET ONE (08:20)
[2022-06-17] MEDS ORDERED: Iopamidol 370 76% 100 ML VIAL ONE (08:26)
== END 2022-06-17 14:20 | disposition home or self-care (01) ==
LOC: SDC 05:49
PROVIDERS: ATTEND Internal Medicine Cardiovascular Disease
PROC: B2111ZZ Fluoroscopy of Multiple Coronary Arteries using Low Osmolar Contrast (ICD-10-PCS; principal; 2022-06-17)
PROC: 4A023N7 Measurement of Cardiac Sampling and Pressure, Left Heart, Percutaneous Approach (ICD-10-PCS; principal; 2022-06-17)
PROC: 027034Z Dilation of Coronary Artery, One Artery with Drug-eluting Intraluminal Device, Percutaneous Approach (ICD-10-PCS; principal; 2022-06-17)
DX: I35.0 Nonrheumatic aortic (valve) stenosis (principal); I25.10 Atherosclerotic heart disease of native coronary artery without angina pectoris; E07.9 Disorder of thyroid, unspecified; E78.00 Pure hypercholesterolemia, unspecified; I10 Essential (primary) hypertension; I70.202 Unspecified atherosclerosis of native arteries of extremities, left leg; Z86.16 Personal history of COVID-19; Z87.891 Personal history of nicotine dependence; Z79.1 Long term (current) use of non-steroidal anti-inflammatories (NSAID); Z79.82 Long term (current) use of aspirin; Z79.890 Hormone replacement therapy; Z79.899 Other long term (current) drug therapy; Z88.2 Allergy status to sulfonamides
CPT/HCPCS: 36415; 80061; 82805; 85347; 92928; 93005; 93460; 99152; 99153; C1751; C1769; C1874; C1887; C1894; C9600; J0153; J1644; J2001; J2250; J3010; Q9967

== ENCOUNTER 2022-09-01 09:05 | Emergency (ER) | payer BC ==
[2022-09-01 10:04] LABS: #Eosinphils 0.3 thou/uL (0.0-0.7); #Lymphocytes 1.9 thou/uL (1.20-3.40); #Neutrophils 6.3 thou/uL (1.40-6.50); %Basophils 0.4 % (0.0-1.0); %Eosinophils 3.2 % (0.0-10.0); %Lymphocytes 19.7 % (21.0-51.0); %Monocytes 10.1 % (0.0-10.0); %Neutrophils 66.6 % (42.0-75.0); Hemoglobin 12.1 g/dL (12.0-16.0); Mean Corpuscular Hemoglobin 30.2 pg (27.0-31.0); Mean Corpuscular Volume 91.3 fl (78.0-98.0); Mean Platelet Volume 7.5 fL (7.4-10.4); Platelet Count 336 10x3/uL (130-400); RBC Distribution Width 11.6 % (11.5-14.5); Red Blood Cell (RBC) Count 4.01 mill/uL (4.20-5.40); White Blood Cell (WBC) Count 9.4 10x3/uL (4.8-10.8)
[2022-09-01 10:32] LABS: ALT (SGPT) 15 U/L (8-55); AST (SGOT) 16 U/L (5-34); Albumin 4.4 g/dL (3.4-4.8); Alkaline Phosphatase 67 U/L (40-110); Anion Gap 16 mmol/L (10-20); BUN (Urea Nitrogen) 24 mg/dL (9.8-20.1); Bilirubin, Total 0.3 mg/dL (0.2-1.2); Calc. Creatinine Clearance 0 mL/min (70-130); Calcium 9.8 mg/dL (7.8-10.44); Carbon Dioxide 20 mmol/L (23-31); Chloride 106 mmol/L (98-107); Estimated GFR 42; Globulin 2.9 g/dL (2.4-3.5); Glucose 126 mg/dL (83-110); Potassium 3.5 mmol/L (3.5-5.1); Protein, Total 7.3 g/dL (5.8-8.1); Sodium 138 mmol/L (136-145)
== END 2022-09-01 13:25 | disposition home or self-care (01) ==
LOC: ERS 09:05
DX: R06.02 Shortness of breath (principal); R42 Dizziness and giddiness
CPT/HCPCS: 36415; 71045; 80053; 83880; 84484; 85025; 93005

== ENCOUNTER 2023-01-20 14:39 | Outpatient (CLI) | payer BC ==
[~2023-01-20 14:39] MED LIST: Iopamidol 370 76% 100 ML VIAL ONE
== END 2023-01-20 14:40 | disposition home or self-care (01) ==
LOC: BICCT 14:39
PROVIDERS: ATTEND Internal Medicine Cardiovascular Disease
DX: R06.02 Shortness of breath (principal)
CPT/HCPCS: 71260; 82565; Q9967

== ENCOUNTER 2023-02-23 13:49 | Outpatient (CLI) | payer BC ==
[2023-02-23] MEDS ORDERED: Iopamidol 370 76% 100 ML VIAL ONE (14:21)
== END 2023-02-23 13:50 | disposition home or self-care (01) ==
LOC: BICCT 13:49
PROVIDERS: ATTEND Thoracic Surgery (Cardiothoracic Vascular Surgery)
DX: I73.9 Peripheral vascular disease, unspecified (principal); I74.5 Embolism and thrombosis of iliac artery
CPT/HCPCS: 75635; 82565

== ENCOUNTER 2023-05-22 14:20 | Outpatient (CLI) | payer BC | END 2023-05-22 14:21 | disposition home or self-care (01) | LOC: SCSMRI 14:20 | PROVIDERS: ATTEND Nurse Practitioner Family | DX: M47.26 Other spondylosis with radiculopathy, lumbar region (principal) | CPT/HCPCS: 72148 ==

== ENCOUNTER 2024-02-11 11:43 | Outpatient (CLI) | payer MEDICARE | END 2024-02-11 11:44 | disposition home or self-care (01) | LOC: SCSRAD 11:43 | PROVIDERS: ATTEND Family Medicine | DX: R06.00 Dyspnea, unspecified (principal) | CPT/HCPCS: 71046 ==

== ENCOUNTER 2024-03-14 13:23 | Inpatient (IN) | payer MEDICARE ==
[2024-03-14] MEDS ORDERED: HYDROmorphone 0.5 MG/0.5 ML SYRINGE ONE ×2 (13:49→14:33)
[2024-03-14 13:53] LABS: #Basophils Less than 0.03 10x3/uL (0.0-0.2); %Basophils 0.2 % (0.0-1.0); %Eosinophils 2.7 % (0.0-10.0); %Lymphocytes 13.9 % (21.0-51.0); %Monocytes 13.7 % (0.0-10.0); %Neutrophils 69.2 % (42.0-75.0); Hemoglobin 10.1 g/dL (12.0-16.0); Mean Corpuscular HGB CONC 32.6 g/dL (32.0-36.0); Mean Corpuscular Hemoglobin 29.6 pg (27.0-31.0); Mean Corpuscular Volume 90.9 fL (78.0-98.0); Mean Platelet Volume 9.4 fL (7.4-10.4); Platelet Count 314 10x3/uL (130-400); RBC Distribution Width 14.1 % (11.5-14.5); Red Blood Cell (RBC) Count 3.41 mill/uL (4.20-5.40)
[2024-03-14 14:12] LABS: ALT (SGPT) 11 U/L (8-55); AST (SGOT) 22 U/L (5-34); Albumin 3.6 g/dL (3.4-4.8); Alkaline Phosphatase 79 U/L (40-110); Anion Gap 17 mmol/L (10-20); BUN (Urea Nitrogen) 13 mg/dL (9.8-20.1); Bilirubin, Total 0.6 mg/dL (0.2-1.2); Calc. Creatinine Clearance 0 mL/min (70-130); Calcium 9.6 mg/dL (7.8-10.44); Carbon Dioxide 20 mmol/L (23-31); Chloride 100 mmol/L (98-107); Estimated GFR 59; Globulin 3.3 g/dL (2.4-3.5); Glucose 116 mg/dL (83-110); Potassium 3.4 mmol/L (3.5-5.1); Protein, Total 6.9 g/dL (5.8-8.1); Sodium 134 mmol/L (136-145)
[2024-03-14] MEDS ORDERED: Ondansetron PF 4 MG/2 ML Vial ONE ×2 (14:34→14:43)
[2024-03-14] MEDS ORDERED: fentaNYL 50 mcg/mL 1 mL Vial SLOW IVP PRN (14:59)
[2024-03-14] MEDS ORDERED: [UNRECOGNIZED DRUG - REMARK] FS PRN (15:00)
[2024-03-14] MEDS ORDERED: CEFAZOLIN 2 GM in Sodium Chloride 0.9% 100 ML IVPB SCH (15:15)
[2024-03-14 17:33] VITALS: BMI 29.2
[2024-03-14] MEDS: HYDROcodone/Acetaminophen 5/325 mg Tablet PO PRN (18:02)
[2024-03-14 19:16] LABS: Magnesium 1.7 mg/dL (1.6-2.6); Phosphorus 3.3 mg/dL (2.3-4.7)
[2024-03-14] MEDS: Aspirin 81 mg Enteric Coated Tablet PO SCH (20:56)
[2024-03-14] MEDS: VYZULTA EA EYE SCH (20:57)
[2024-03-15] MEDS: Ondansetron PF 4 MG/2 ML Vial IVP PRN (00:49)
[2024-03-15] MEDS: TETANUS, DIPHTHERIA TOX,ADULT (TDVAX) 0.5 ML VIAL IM ONE (07:36)
[2024-03-15 09:18] LABS: #Basophils Less than 0.03 10x3/uL (0.0-0.2); %Basophils 0.3 % (0.0-1.0); %Eosinophils 5.9 % (0.0-10.0); %Lymphocytes 19.6 % (21.0-51.0); %Monocytes 16.2 % (0.0-10.0); %Neutrophils 57.9 % (42.0-75.0); Hematocrit 30.2 % (36.0-47.0); Hemoglobin 9.4 g/dL (12.0-16.0); Mean Corpuscular HGB CONC 31.1 g/dL (32.0-36.0); Mean Corpuscular Hemoglobin 29.3 pg (27.0-31.0); Mean Corpuscular Volume 94.1 fL (78.0-98.0); Platelet Count 295 10x3/uL (130-400); Red Blood Cell (RBC) Count 3.21 mill/uL (4.20-5.40)
[2024-03-15 09:36] LABS: Anion Gap 10 mmol/L (10-20); BUN (Urea Nitrogen) 14 mg/dL (9.8-20.1); Calc. Creatinine Clearance 53 mL/min (70-130); Calcium 9.2 mg/dL (7.8-10.44); Carbon Dioxide 26 mmol/L (23-31); Chloride 103 mmol/L (98-107); Estimated GFR 55; Glucose 101 mg/dL (83-110); Magnesium 1.9 mg/dL (1.6-2.6); Potassium 3.2 mmol/L (3.5-5.1); Sodium 136 mmol/L (136-145)
[2024-03-15] MEDS ORDERED: PROPOFOL 20 ML ONE (11:34)
[2024-03-15] MEDS ORDERED: Fentanyl 250 MCG/5 ML VIAL ONE (11:34)
[2024-03-15] MEDS ORDERED: Lidocaine 1% PF 5 ML VIAL ONE (11:35)
[2024-03-15] MEDS ORDERED: Rocuronium Bromide 10 MG/ML (10ML VIAL) ONE (11:35)
[2024-03-15] MEDS ORDERED: Ondansetron PF 4 MG/2 ML Vial ONE (11:35)
[2024-03-15] MEDS ORDERED: CEFAZOLIN 2 GM VIAL ONE (11:55)
[2024-03-15] MEDS ORDERED: Albuterol HFA (OR) 200 PUFF INH ONE ×2 (12:22→12:25)
[2024-03-15] MEDS ORDERED: Ondansetron HCl/PF 4 MG/2 ML Vial IVP PRN (12:49)
[2024-03-15] MEDS ORDERED: Promethazine HCl 25 MG/ML VIAL IM PRN (12:49)
[2024-03-15] MEDS ORDERED: PHENYLEPHRINE-NS 100 MCG/ML 10 ML SYRINGE ONE (12:55)
[2024-03-15] MEDS ORDERED: SUGAMMADEX SODIUM 200 MG/2 ML VIAL ONE (13:27)
[2024-03-15] MEDS ORDERED: fentaNYL PF 100 MCG/2 ML SYRINGE ONE (14:07)
[2024-03-15] MEDS ORDERED: HYDROmorphone 0.5 MG/0.5 ML SYRINGE ONE ×2 (14:19→14:37)
[2024-03-15] MEDS ORDERED: fentaNYL 50 mcg/mL 1 mL Vial ONE (14:46)
[2024-03-15] MEDS ORDERED: Potassium Chloride 20 MEQ in Premix 1 BAG IVPB SCH (15:00)
[2024-03-15] MEDS: Magnesium 2 GM/50 ML(in water) 2 GM in Premix 1 BAG IVPB SCH (15:18)
[2024-03-15] MEDS: Potassium Chloride 20 MEQ in Lactated Ringer's 1,000 ML IV SCH (17:07)
[2024-03-15] MEDS: tiZANidine HCl 4 MG TAB PO PRN (17:07)
[2024-03-15] MEDS: Losartan 25 MG TAB PO SCH (19:41)
[2024-03-15] MEDS: Melatonin 3 MG TAB PO SCH (19:41)
[2024-03-15] MEDS: Loratadine 10 MG TAB PO SCH (19:41)
[2024-03-15] MEDS: Cyanocobalamin (Vitamin B-12) 1,000 MCG TAB PO SCH (19:41)
[2024-03-15] MEDS: Senokot S 8.6-50 MG TAB PO SCH (19:41)
[2024-03-15] MEDS: Cholecalciferol 1,000 UNITS (25 MCG) TAB PO SCH (19:41)
[2024-03-15] MEDS: CEFAZOLIN 2 GM in Sodium Chloride 0.9% 100 ML IVPB SCH (19:41)
[2024-03-15] MEDS: Multivit, Therapeutic 1 TAB PO SCH (19:41)
[2024-03-15] MEDS: Potassium Bicarbonate/Cit Ac 20 MEQ TAB PO SCH (19:42)
[2024-03-15] MEDS ORDERED: Non-Formulary Item 1 EACH (Latanoprostene Bunod [Vyzulta] 5 ML Drops) EA EYE SCH (21:00)
[2024-03-16] MEDS: Levothyroxine Sodium 125 MCG TAB PO SCH (04:53)
[2024-03-16 06:00] LABS: Hematocrit 23.7 % (36.0-47.0); Hemoglobin 7.4 g/dL (12.0-16.0); Mean Corpuscular HGB CONC 31.2 g/dL (32.0-36.0); Mean Corpuscular Hemoglobin 29.1 pg (27.0-31.0); Mean Corpuscular Volume 93.3 fL (78.0-98.0); Mean Platelet Volume 9.6 fL (7.4-10.4); Platelet Count 265 10x3/uL (130-400); RBC Distribution Width 14.4 % (11.5-14.5); Red Blood Cell (RBC) Count 2.54 mill/uL (4.20-5.40)
[2024-03-16 06:03] LABS: Anion Gap 14 mmol/L (10-20); BUN (Urea Nitrogen) 15 mg/dL (9.8-20.1); Calc. Creatinine Clearance 36 mL/min (70-130); Calcium 8.5 mg/dL (7.8-10.44); Carbon Dioxide 24 mmol/L (23-31); Chloride 101 mmol/L (98-107); Estimated GFR 35; Glucose 111 mg/dL (83-110); Magnesium 2.1 mg/dL (1.6-2.6); Potassium 3.9 mmol/L (3.5-5.1); Sodium 135 mmol/L (136-145)
[2024-03-16 08:15] LABS: Band 14 % (5-11); Lymphocytes 19 % (21-51); Monocytes 13 % (0-10); Neutrophil 55 % (42-75); Platelet Adequacy Comment Platelets Normal; Polychromasia SLIGHT = 2-3 cells HPF (0-2)
[2024-03-16] MEDS: Atorvastatin Calcium 20 MG TAB PO SCH (08:59)
[2024-03-16] MEDS: Escitalopram Oxalate 10 mg Tablet PO SCH (08:59)
[2024-03-16] MEDS: Folic Acid 1 MG TAB PO SCH (08:59)
[2024-03-16] MEDS: NIFEdipine XL 30 MG ER.TAB PO SCH (09:02)
[2024-03-16] MEDS: Sodium Chloride 0.9% 1,000 ML IV SCH ×2 (12:00→20:05)
[2024-03-16 16:41] LABS: Anion Gap 10 mmol/L (10-20); BUN (Urea Nitrogen) 21 mg/dL (9.8-20.1); Calc. Creatinine Clearance 34 mL/min (70-130); Calcium 8.4 mg/dL (7.8-10.44); Carbon Dioxide 24 mmol/L (23-31); Chloride 104 mmol/L (98-107); Estimated GFR 32; Glucose 93 mg/dL (83-110); Potassium 4.6 mmol/L (3.5-5.1); Sodium 133 mmol/L (136-145)
[2024-03-17 05:59] LABS: #Basophils Less than 0.03 10x3/uL (0.0-0.2); %Basophils 0.1 % (0.0-1.0); %Eosinophils 3.1 % (0.0-10.0); %Lymphocytes 16.2 % (21.0-51.0); %Monocytes 18.1 % (0.0-10.0); %Neutrophils 62.2 % (42.0-75.0); Hemoglobin 7.6 g/dL (12.0-16.0); Mean Corpuscular HGB CONC 30.4 g/dL (32.0-36.0); Mean Corpuscular Hemoglobin 28.5 pg (27.0-31.0); Mean Corpuscular Volume 93.6 fL (78.0-98.0); Mean Platelet Volume 9.6 fL (7.4-10.4); Platelet Count 262 10x3/uL (130-400); RBC Distribution Width 14.2 % (11.5-14.5); Red Blood Cell (RBC) Count 2.67 mill/uL (4.20-5.40)
[2024-03-17 06:22] LABS: Anion Gap 14 mmol/L (10-20); BUN (Urea Nitrogen) 14 mg/dL (9.8-20.1); Calc. Creatinine Clearance 63 mL/min (70-130); Calcium 8.4 mg/dL (7.8-10.44); Carbon Dioxide 20 mmol/L (23-31); Chloride 108 mmol/L (98-107); Estimated GFR 67; Glucose 103 mg/dL (83-110); Potassium 3.7 mmol/L (3.5-5.1); Sodium 138 mmol/L (136-145)
[2024-03-17 06:35] LABS: Bilirubin Negative (Negative); Blood, Urine Negative (Negative); Clarity Clear (Clear); Glucose, Urine (Dipstick) Normal (Negative); Ketone, Urine Negative (Negative); Leukocyte Negative Leu/uL (Negative); Nitrite Negative (Negative); Protein, Urine (Dipstick) Negative (Neg-Trace); RBC/HPF 0-3 HPF (0-3); Squamous Epithelial 0-3 HPF (0-3); Urobilinogen Normal mg/dL (Less than 2); WBC/HPF None Seen HPF (0-3); pH, Urine 5.5 (5.0-9.0)
[2024-03-17 06:36] LABS: Bacteria/HPF 1+ HPF (None Seen)
[2024-03-17] MEDS: HYDROcodone/Acetaminophen 5/325 mg Tablet PO PRN (09:23)
[2024-03-17] MEDS ORDERED: Polyethylene Glycol 3350 17 GM Packet PO PRN (18:03)
[2024-03-18] MEDS ORDERED: Lactated Ringer's 1,000 ML IV SCH (08:15)
[2024-03-18] MEDS: Potassium Bicarbonate/Cit Ac 20 MEQ TAB PO SCH (15:27)
[2024-03-19 05:52] LABS: #Basophils 0.03 10x3/uL (0.0-0.2); %Basophils 0.3 % (0.0-1.0); %Eosinophils 5.5 % (0.0-10.0); %Lymphocytes 22.6 % (21.0-51.0); %Monocytes 12.2 % (0.0-10.0); %Neutrophils 59.1 % (42.0-75.0); Hematocrit 24.5 % (36.0-47.0); Hemoglobin 7.6 g/dL (12.0-16.0); Mean Corpuscular Hemoglobin 28.6 pg (27.0-31.0); Mean Corpuscular Volume 92.1 fL (78.0-98.0); Mean Platelet Volume 10.1 fL (7.4-10.4); Platelet Count 302 10x3/uL (130-400); RBC Distribution Width 14.4 % (11.5-14.5); Red Blood Cell (RBC) Count 2.66 mill/uL (4.20-5.40)
[2024-03-19 06:12] LABS: Anion Gap 14 mmol/L (10-20); BUN (Urea Nitrogen) 12 mg/dL (9.8-20.1); Calc. Creatinine Clearance 72 mL/min (70-130); Calcium 8.5 mg/dL (7.8-10.44); Carbon Dioxide 21 mmol/L (23-31); Chloride 107 mmol/L (98-107); Estimated GFR 79; Glucose 92 mg/dL (83-110); Sodium 138 mmol/L (136-145)
[2024-03-19 07:50] VITALS: BP 183/75; TEMP 98
[2024-03-19] MEDS: hydrALAZINE 25 MG TAB PO PRN (09:11)
[2024-03-19] MEDS ORDERED: Albuterol 2.5 MG (3 mL) NEB NEB PRN (11:32)
[2024-03-19] MEDS ORDERED: Ipratropium/Albuterol 3 ML NEB NEB PRN (11:41)
[2024-03-19] MEDS ORDERED: Ipratropium/Albuterol 3 ML NEB NEB SCH ×2 (11:45→15:00)
[2024-03-19] MEDS ORDERED: Mometasone 200 MCG/Formoterol 5 MCG 120 PUFF INHALER INH SCH (18:30)
[2024-03-20] MEDS ORDERED: TICAGRELOR 90 MG TABLET PO SCH (09:00)
== END 2024-03-19 12:15 | DRG 470 ==
LOC: ERS 13:23 → SURG B 16:55
PROVIDERS: ADMIT Orthopaedic Surgery; ATTEND Orthopaedic Surgery
PROC: 0SRS0JA Replacement of Left Hip Joint, Femoral Surface with Synthetic Substitute, Uncemented, Open Approach (ICD-10-PCS; principal; 2024-03-15)
PROC: 0QP704Z Removal of Internal Fixation Device from Left Upper Femur, Open Approach (ICD-10-PCS; 2024-03-15)
DX: T84.89XA Other specified complication of internal orthopedic prosthetic devices, implants and grafts, initial encounter (principal); E87.1 Hypo-osmolality and hyponatremia; N17.9 Acute kidney failure, unspecified; E03.9 Hypothyroidism, unspecified; E78.5 Hyperlipidemia, unspecified; I25.10 Atherosclerotic heart disease of native coronary artery without angina pectoris; Z96.641 Presence of right artificial hip joint; W19.XXXA Unspecified fall, initial encounter; R53.1 Weakness; H40.9 Unspecified glaucoma; E87.6 Hypokalemia; E83.42 Hypomagnesemia; F41.9 Anxiety disorder, unspecified; N18.30 Chronic kidney disease, stage 3 unspecified; I12.9 Hypertensive chronic kidney disease with stage 1 through stage 4 chronic kidney disease, or unspecified chronic kidney disease; Z98.890 Other specified postprocedural states; Z95.5 Presence of coronary angioplasty implant and graft; Z88.2 Allergy status to sulfonamides; Z95.2 Presence of prosthetic heart valve
CPT/HCPCS: 36415; 71045; 72170; 80048; 80053; 81001; 83735; 84100; 84443; 85025; 86850; 86900; 86901; 93005; 96374; 96375; 96376; C1776; J2405; J2704; J3010; J3475; J3480; J7030; J7120